=== PATIENT | female | born 1985 | race Caucasian/White ===

== ENCOUNTER 2016-09-22 15:59 | Emergency (ER) | payer MEDICAID ==
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
[2016-09-22] MEDS ORDERED: Sodium Chloride 0.9% 10 ML Syringe FLUSH PRN (16:05)
[2016-09-22] MEDS ORDERED: cefTRIAXone 2 GM in Sodium Chloride 0.9% 100 ML IV ONE (16:05)
[2016-09-22 16:48] LABS: CHLORIDE,CL 107 mmol/L (98-107); SODIUM,NA 142 mmol/L (136-145)
[2016-09-22 17:03] VITALS: BP 112/67
== END 2016-09-22 17:31 | disposition home or self-care (01) ==
LOC: LL.ED 15:59
DX: K04.7 Periapical abscess without sinus (principal); Z88.1 Allergy status to other antibiotic agents; F17.200 Nicotine dependence, unspecified, uncomplicated; E05.90 Thyrotoxicosis, unspecified without thyrotoxic crisis or storm; F41.8 Other specified anxiety disorders; J06.9 Acute upper respiratory infection, unspecified
CPT/HCPCS: 36415; 80053; 84443; 85025; 87804; 96365; 99284; J0696; J7050